=== PATIENT | male | born 1980 | race Two or more races ===

== ENCOUNTER 2020-04-21 19:17 | Inpatient (IN) | payer MEDICAID, OTHER ==
[~2020-04-21] VITALS: Ht 180.3 cm; Wt 80.3 kg
[2020-04-21] MEDS ORDERED: SERT100T12 PO (20:20)
[2020-04-21] MEDS ORDERED: BENZ1TAB10 PO (20:20)
[2020-04-21] MEDS ORDERED: TRAZ-257 PO (20:20)
[2020-04-21] MEDS ORDERED: QUET25TA PO (20:20)
[2020-04-21] MEDS ORDERED: QUET200T PO (20:20)
[2020-04-21] MEDS ORDERED: CLON-592 PO (20:20)
[2020-04-21 20:35] LABS: BASOPHILS % (AUTO) 0.4 % (0.0-2.0); EOSINOPHILS % (AUTO) 0.2 % (1.0-6.0); HEMATOCRIT 43.1 % (41-53); HEMOGLOBIN 14.5 g/dL (13.5-17.5); LYMPHOCYTES # (AUTO) 1.2 K/uL (1.0-4.8); LYMPHOCYTES % (AUTO) 9.5 % (22.0-44.0); MEAN CORPUSCULAR HEMOGLOBIN 29.9 pg (26.0-34.0); MEAN CORPUSCULAR HGB CONC 33.5 G/dL (31.0-37.0); MEAN CORPUSCULAR VOLUME 89 fL (80-100); MONOCYTES # (AUTO) 0.9 K/uL (0.1-1.0); NEUTROPHILS # (AUTO) 10.5 K/uL (1.8-7.7); NEUTROPHILS % (AUTO) 82.9 % (40.0-70.0); PLATELET COUNT (AUTO) 204 K/uL (150-450); RED BLOOD CELL COUNT(AUTO) 4.83 MIL/uL (4.50-5.90); RED CELL DISTRIBUTION WIDTH 13.7 % (11.5-14.5)
[2020-04-21 20:48] LABS: ANION GAP 15 mmol/L (8-16); CALCIUM, TOTAL 9.4 mg/dL (8.8-10.5); CARBON DIOXIDE 22 mmol/L (22-29); CHLORIDE 103 mmol/L (98-107); CREATININE 1.42 mg/dL (0.60-1.30); GLOMERULAR FILTR. RATE CALC 56 mL/min (>60); GLUCOSE,RANDOM 104 mg/dL (70-110); POTASSIUM 3.4 mmol/L (3.5-5.1); SODIUM SERUM 140 mmol/L (136-145); UREA NITROGEN, BLOOD 22 mg/dL (7-18)
[2020-04-21 20:56] LABS: ALANINE AMINOTRANSFERASE 26 U/L (12-78); ALBUMIN 4.5 g/dL (3.4-5.0); ALKALINE PHOSPHATASE 65 U/L (46-116); ASPARTATE AMINOTRANSFERASE 20 U/L (15-37); BILIRUBIN,TOTAL 0.4 mg/dL (0.1-1.0); TOTAL PROTEIN, SERUM 7.4 g/dL (6.4-8.2)
[2020-04-21] MEDS ORDERED: LORazepam 2 MG/ML VIAL IM ONE (21:30)
[2020-04-21] MEDS ORDERED: HALOPERIDOL LACTATE 5 MG/ML VIAL IM ONE (21:30)
[2020-04-21] MEDS ORDERED: DiphenhydrAMINE HCL 50 MG/ML VIAL IM ONE (21:30)
[2020-04-21] MEDS ORDERED: ZOLPIDEM TARTRATE 10 MG TABLET PO PRN (22:00)
[2020-04-21] MEDS ORDERED: HALOPERIDOL 5 MG TABLET PO PRN (22:00)
[2020-04-22 00:31] VITALS: BP 108/78
[2020-04-22] MEDS ORDERED: MAG HYDROX/AL HYDROX/SIMETH ES 30 ML SUSPENSION UDCUP PO PRN (04:00)
[2020-04-22] MEDS ORDERED: ONDANSETRON HCL 4 MG TABLET PO PRN (04:00)
[2020-04-22] MEDS ORDERED: ALBUTEROL SULFATE HFA 90 MCG/PUFF 8 GM INHALER IH PRN (04:00)
[2020-04-22] MEDS ORDERED: GuaiFENesin/D-METHORPHAN [SUGAR-FREE] 200-20MG/10 ML SYRUP UDCUP PO PRN (04:00)
[2020-04-22] MEDS ORDERED: IBUPROFEN 400 MG TABLET PO PRN (04:00)
[2020-04-22] MEDS ORDERED: ACETAMINOPHEN 325 MG TABLET PO PRN (04:00)
[2020-04-22] MEDS ORDERED: NICOTINE 14 MG/24 HOUR PATCH TD PRN (04:00)
[2020-04-22] MEDS ORDERED: PETROLATUM,WHITE 28 GM JELLY TP PRN (04:00)
[2020-04-22] MEDS ORDERED: LOPERAMIDE HCL 2 MG CAPSULE PO PRN (04:00)
[2020-04-22] MEDS ORDERED: MAGNESIUM HYDROXIDE SUSPENSION 30 ML UDCUP PO PRN (04:00)
[2020-04-22] MEDS ORDERED: CloNIDine HCL 0.1 MG TABLET PO PRN (04:00)
[2020-04-22] MEDS ORDERED: DOCUSATE SODIUM 100 MG CAPSULE PO PRN (04:00)
[2020-04-22 08:10] LABS: CHOL/HDL RATIO 6.1 (4.2-7.3); POTASSIUM 4.1 mmol/L (3.5-5.1)
[2020-04-22 08:15] VITALS: BP 122/76
[2020-04-22] MEDS: BENZTROPINE MESYLATE 1 MG TABLET PO SCH ×2 (13:08→16:48)
[2020-04-22 16:12] VITALS: BP 121/80
[2020-04-22] MEDS: LORazepam 2 MG TABLET PO PRN (16:48)
[2020-04-22] MEDS: OLANZapine 5 MG TABLET PO SCH (16:48)
[2020-04-22] MEDS: QUEtiapine FUMARATE 200 MG TABLET PO SCH (20:44)
[2020-04-23 01:56] VITALS: BP 115/78
[2020-04-23 08:04] VITALS: BP 129/74
[2020-04-23] MEDS: SERTRALINE HCL 100 MG TABLET PO SCH (08:39)
[2020-04-23] MEDS: BENZTROPINE MESYLATE 1 MG TABLET PO SCH ×3 (08:39→16:43)
[2020-04-23] MEDS: OLANZapine 5 MG TABLET PO SCH ×2 (08:39→16:42)
[2020-04-23 17:29] VITALS: BP 125/84
[2020-04-23] MEDS: QUEtiapine FUMARATE 200 MG TABLET PO SCH (20:30)
[2020-04-24 04:32] VITALS: BP 124/65
[2020-04-24] MEDS: OLANZapine 5 MG TABLET PO SCH ×2 (09:43→16:49)
[2020-04-24] MEDS: BENZTROPINE MESYLATE 1 MG TABLET PO SCH ×3 (09:43→16:49)
[2020-04-24] MEDS: SERTRALINE HCL 100 MG TABLET PO SCH (09:43)
[2020-04-24 09:47] VITALS: BP 130/77
[2020-04-24 16:16] VITALS: BP 112/75
[2020-04-24] MEDS ORDERED: DiphenhydrAMINE HCL 50 MG/ML VIAL ONE (17:09)
[2020-04-24] MEDS ORDERED: HALOPERIDOL LACTATE 5 MG/ML VIAL ONE (17:09)
[2020-04-24] MEDS ORDERED: LORazepam 2 MG/ML VIAL IM ONE (17:15)
[2020-04-24] MEDS ORDERED: HALOPERIDOL LACTATE 5 MG/ML VIAL IM ONE (17:15)
[2020-04-24] MEDS ORDERED: DiphenhydrAMINE HCL 50 MG/ML VIAL IM ONE (17:15)
[2020-04-24] MEDS: QUEtiapine FUMARATE 200 MG TABLET PO SCH (20:35)
[2020-04-25 05:06] VITALS: BP 110/68
[2020-04-25 08:26] VITALS: BP 125/86
[2020-04-25] MEDS: BENZTROPINE MESYLATE 1 MG TABLET PO SCH ×3 (09:17→16:27)
[2020-04-25] MEDS: OLANZapine 5 MG TABLET PO SCH ×2 (09:17→16:27)
[2020-04-25] MEDS: SERTRALINE HCL 100 MG TABLET PO SCH (09:17)
[2020-04-25 16:32] VITALS: BP 127/74
[2020-04-25] MEDS: QUEtiapine FUMARATE 200 MG TABLET PO SCH (20:18)
[2020-04-26 05:00] VITALS: BP 120/62
[2020-04-26] MEDS: BENZTROPINE MESYLATE 1 MG TABLET PO SCH ×3 (08:39→16:55)
[2020-04-26] MEDS: SERTRALINE HCL 100 MG TABLET PO SCH (08:39)
[2020-04-26] MEDS: OLANZapine 5 MG TABLET PO SCH ×2 (08:39→16:55)
[2020-04-26 09:31] VITALS: BP 109/65
[2020-04-26 16:06] VITALS: BP 140/70
[2020-04-26] MEDS ORDERED: LORazepam 2 MG/ML VIAL IM ONE (17:30)
[2020-04-26] MEDS ORDERED: HALOPERIDOL LACTATE 5 MG/ML VIAL IM ONE (17:30)
[2020-04-26] MEDS ORDERED: DiphenhydrAMINE HCL 50 MG/ML VIAL IM ONE (17:30)
[2020-04-26] MEDS: QUEtiapine FUMARATE 200 MG TABLET PO SCH (20:47)
[2020-04-27 02:01] VITALS: BP 108/65
[2020-04-27 07:56] LABS: BASOPHILS % (AUTO) 0.8 % (0.0-2.0); EOSINOPHILS % (AUTO) 4.3 % (1.0-6.0); HEMATOCRIT 43.1 % (41-53); HEMOGLOBIN 14.2 g/dL (13.5-17.5); LYMPHOCYTES # (AUTO) 2.2 K/uL (1.0-4.8); LYMPHOCYTES % (AUTO) 32.3 % (22.0-44.0); MEAN CORPUSCULAR HGB CONC 33.1 G/dL (31.0-37.0); MEAN CORPUSCULAR VOLUME 91 fL (80-100); MONOCYTES # (AUTO) 0.6 K/uL (0.1-1.0); NEUTROPHILS # (AUTO) 3.8 K/uL (1.8-7.7); NEUTROPHILS % (AUTO) 54.6 % (40.0-70.0); PLATELET COUNT (AUTO) 200 K/uL (150-450); RED BLOOD CELL COUNT(AUTO) 4.75 MIL/uL (4.50-5.90); RED CELL DISTRIBUTION WIDTH 13.6 % (11.5-14.5)
[2020-04-27] MEDS: OLANZapine 5 MG TABLET PO SCH ×2 (08:20→16:59)
[2020-04-27] MEDS: LORazepam 2 MG TABLET PO PRN (08:20)
[2020-04-27] MEDS: OMEGA-3/DHA/EPA/FISH OIL 1,000 MG CAPSULE PO SCH (08:20)
[2020-04-27] MEDS: BENZTROPINE MESYLATE 1 MG TABLET PO SCH ×3 (08:20→16:59)
[2020-04-27] MEDS: SERTRALINE HCL 100 MG TABLET PO SCH (08:20)
[2020-04-27 09:19] VITALS: BP 122/80
[2020-04-27 16:22] VITALS: BP 122/77
[2020-04-27] MEDS: QUEtiapine FUMARATE 200 MG TABLET PO SCH (20:32)
[2020-04-28 05:27] VITALS: BP 125/78
[2020-04-28 08:11] VITALS: BP 118/69
[2020-04-28] MEDS: LORazepam 2 MG TABLET PO PRN (08:44)
[2020-04-28] MEDS: OLANZapine 5 MG TABLET PO SCH ×2 (08:44→16:36)
[2020-04-28] MEDS: SERTRALINE HCL 100 MG TABLET PO SCH (08:44)
[2020-04-28] MEDS: OMEGA-3/DHA/EPA/FISH OIL 1,000 MG CAPSULE PO SCH (08:44)
[2020-04-28] MEDS: BENZTROPINE MESYLATE 1 MG TABLET PO SCH ×3 (08:44→16:36)
[2020-04-28 16:14] VITALS: BP 115/76
[2020-04-28] MEDS: QUEtiapine FUMARATE 200 MG TABLET PO SCH (20:16)
[2020-04-29 04:07] VITALS: BP 121/72
[2020-04-29 09:13] VITALS: BP 110/78
[2020-04-29] MEDS: SERTRALINE HCL 100 MG TABLET PO SCH (09:26)
[2020-04-29] MEDS: OMEGA-3/DHA/EPA/FISH OIL 1,000 MG CAPSULE PO SCH (09:26)
[2020-04-29] MEDS: BENZTROPINE MESYLATE 1 MG TABLET PO SCH ×3 (09:26→16:46)
[2020-04-29] MEDS: OLANZapine 5 MG TABLET PO SCH ×2 (09:26→16:46)
[2020-04-29 16:07] VITALS: BP 120/73
[2020-04-29] MEDS: QUEtiapine FUMARATE 200 MG TABLET PO SCH (20:32)
[2020-04-30 04:15] VITALS: BP 125/75
[2020-04-30 08:28] VITALS: BP 119/81
[2020-04-30] MEDS: OLANZapine 5 MG TABLET PO SCH ×2 (08:31→16:11)
[2020-04-30] MEDS: BENZTROPINE MESYLATE 1 MG TABLET PO SCH ×3 (08:31→16:11)
[2020-04-30] MEDS: OMEGA-3/DHA/EPA/FISH OIL 1,000 MG CAPSULE PO SCH (08:31)
[2020-04-30] MEDS: SERTRALINE HCL 100 MG TABLET PO SCH (08:31)
[2020-04-30 17:22] VITALS: BP 131/79
[2020-04-30] MEDS: QUEtiapine FUMARATE 200 MG TABLET PO SCH (20:17)
[2020-05-01 01:12] VITALS: BP 139/76
[2020-05-01 08:19] VITALS: BP 132/84
[2020-05-01] MEDS: BENZTROPINE MESYLATE 1 MG TABLET PO SCH ×3 (08:40→17:31)
[2020-05-01] MEDS: OLANZapine 5 MG TABLET PO SCH ×2 (08:40→17:31)
[2020-05-01] MEDS: SERTRALINE HCL 100 MG TABLET PO SCH (08:40)
[2020-05-01] MEDS: OMEGA-3/DHA/EPA/FISH OIL 1,000 MG CAPSULE PO SCH (08:40)
[2020-05-01 16:42] VITALS: BP 130/81
[2020-05-01] MEDS: QUEtiapine FUMARATE 200 MG TABLET PO SCH (20:22)
[2020-05-02 06:33] VITALS: BP 128/80
[2020-05-02 08:23] VITALS: BP 130/84
[2020-05-02] MEDS: OLANZapine 5 MG TABLET PO SCH ×2 (08:34→16:07)
[2020-05-02] MEDS: SERTRALINE HCL 100 MG TABLET PO SCH (08:34)
[2020-05-02] MEDS: OMEGA-3/DHA/EPA/FISH OIL 1,000 MG CAPSULE PO SCH (08:34)
[2020-05-02] MEDS: BENZTROPINE MESYLATE 1 MG TABLET PO SCH ×3 (08:34→16:06)
[2020-05-02 17:27] VITALS: BP 139/85
[2020-05-02] MEDS: QUEtiapine FUMARATE 200 MG TABLET PO SCH (21:09)
[2020-05-03 01:32] VITALS: BP 122/76
[2020-05-03 08:00] VITALS: BP 122/80
[2020-05-03] MEDS: BENZTROPINE MESYLATE 1 MG TABLET PO SCH ×3 (12:00→16:06)
[2020-05-03] MEDS: OMEGA-3/DHA/EPA/FISH OIL 1,000 MG CAPSULE PO SCH (12:00)
[2020-05-03] MEDS: SERTRALINE HCL 100 MG TABLET PO SCH (12:00)
[2020-05-03] MEDS: OLANZapine 5 MG TABLET PO SCH ×2 (12:00→16:06)
[2020-05-03 16:00] VITALS: BP 122/88
[2020-05-03] MEDS: LORazepam 2 MG TABLET PO PRN (16:06)
[2020-05-03] MEDS: QUEtiapine FUMARATE 200 MG TABLET PO SCH (20:35)
[2020-05-04 00:35] VITALS: BP 129/74
[2020-05-04] MEDS: BENZTROPINE MESYLATE 1 MG TABLET PO SCH ×3 (08:37→16:09)
[2020-05-04] MEDS: OLANZapine 5 MG TABLET PO SCH ×2 (08:37→16:09)
[2020-05-04] MEDS: OMEGA-3/DHA/EPA/FISH OIL 1,000 MG CAPSULE PO SCH (08:37)
[2020-05-04] MEDS: LORazepam 2 MG TABLET PO PRN (08:37)
[2020-05-04] MEDS: SERTRALINE HCL 100 MG TABLET PO SCH (08:37)
[2020-05-04 09:39] VITALS: BP 106/60
[2020-05-04 16:41] VITALS: BP 120/74
[2020-05-04] MEDS: QUEtiapine FUMARATE 200 MG TABLET PO SCH (20:10)
[2020-05-05] VITALS: BP 112/73
[2020-05-05 09:04] VITALS: BP 112/70
[2020-05-05] MEDS: OMEGA-3/DHA/EPA/FISH OIL 1,000 MG CAPSULE PO SCH (09:24)
[2020-05-05] MEDS: BENZTROPINE MESYLATE 1 MG TABLET PO SCH ×3 (09:24→16:00)
[2020-05-05] MEDS: SERTRALINE HCL 100 MG TABLET PO SCH (09:24)
[2020-05-05] MEDS: OLANZapine 5 MG TABLET PO SCH ×2 (09:24→16:00)
[2020-05-05 17:50] VITALS: BP 128/81
[2020-05-05] MEDS: QUEtiapine FUMARATE 200 MG TABLET PO SCH (20:14)
[2020-05-06] VITALS: BP 122/71
[2020-05-06 08:39] VITALS: BP 130/75
[2020-05-06] MEDS: OLANZapine 5 MG TABLET PO SCH ×2 (09:29→16:50)
[2020-05-06] MEDS: BENZTROPINE MESYLATE 1 MG TABLET PO SCH ×3 (09:29→16:50)
[2020-05-06] MEDS: OMEGA-3/DHA/EPA/FISH OIL 1,000 MG CAPSULE PO SCH (09:29)
[2020-05-06] MEDS: SERTRALINE HCL 100 MG TABLET PO SCH (09:29)
[2020-05-06 16:06] VITALS: BP 131/83
[2020-05-06] MEDS: QUEtiapine FUMARATE 200 MG TABLET PO SCH (20:56)
[2020-05-07 06:15] VITALS: BP 130/80
[2020-05-07 08:15] VITALS: BP 125/54
[2020-05-07] MEDS: OMEGA-3/DHA/EPA/FISH OIL 1,000 MG CAPSULE PO SCH (09:37)
[2020-05-07] MEDS: SERTRALINE HCL 100 MG TABLET PO SCH (09:37)
[2020-05-07] MEDS: OLANZapine 5 MG TABLET PO SCH ×2 (09:37→16:38)
[2020-05-07] MEDS: BENZTROPINE MESYLATE 1 MG TABLET PO SCH ×3 (09:37→16:38)
[2020-05-07 16:06] VITALS: BP 129/75
[2020-05-07] MEDS: QUEtiapine FUMARATE 200 MG TABLET PO SCH (20:14)
[2020-05-08 04:25] VITALS: BP 131/74
[2020-05-08] MEDS: SERTRALINE HCL 100 MG TABLET PO SCH (08:38)
[2020-05-08] MEDS: OMEGA-3/DHA/EPA/FISH OIL 1,000 MG CAPSULE PO SCH (08:38)
[2020-05-08] MEDS: OLANZapine 5 MG TABLET PO SCH ×2 (08:38→16:19)
[2020-05-08] MEDS: BENZTROPINE MESYLATE 1 MG TABLET PO SCH ×3 (08:38→16:19)
[2020-05-08 09:25] VITALS: BP 123/64
[2020-05-08 16:04] VITALS: BP 131/86
[2020-05-08] MEDS: QUEtiapine FUMARATE 200 MG TABLET PO SCH (20:15)
[2020-05-09 01:43] VITALS: BP 127/75
[2020-05-09] MEDS: OLANZapine 5 MG TABLET PO SCH ×2 (08:22→16:22)
[2020-05-09] MEDS: OMEGA-3/DHA/EPA/FISH OIL 1,000 MG CAPSULE PO SCH (08:22)
[2020-05-09] MEDS: BENZTROPINE MESYLATE 1 MG TABLET PO SCH ×3 (08:22→16:22)
[2020-05-09] MEDS: SERTRALINE HCL 100 MG TABLET PO SCH (08:22)
[2020-05-09 08:39] VITALS: BP 120/77
[2020-05-09 16:06] VITALS: BP 115/73
[2020-05-09] MEDS: QUEtiapine FUMARATE 200 MG TABLET PO SCH (21:26)
[2020-05-10 00:57] VITALS: BP 120/62
[2020-05-10 08:09] VITALS: BP 107/70
[2020-05-10] MEDS: SERTRALINE HCL 100 MG TABLET PO SCH (08:21)
[2020-05-10] MEDS: OMEGA-3/DHA/EPA/FISH OIL 1,000 MG CAPSULE PO SCH (08:21)
[2020-05-10] MEDS: OLANZapine 5 MG TABLET PO SCH ×2 (08:21→16:38)
[2020-05-10] MEDS: BENZTROPINE MESYLATE 1 MG TABLET PO SCH ×3 (08:21→16:38)
[2020-05-10 16:16] VITALS: BP 133/81
[2020-05-10] MEDS: QUEtiapine FUMARATE 200 MG TABLET PO SCH (20:24)
[2020-05-11 00:10] VITALS: BP 118/71
[2020-05-11 08:09] VITALS: BP 112/74
[2020-05-11] MEDS: OLANZapine 5 MG TABLET PO SCH ×2 (08:09→16:36)
[2020-05-11] MEDS: BENZTROPINE MESYLATE 1 MG TABLET PO SCH ×3 (08:09→16:36)
[2020-05-11] MEDS: SERTRALINE HCL 100 MG TABLET PO SCH (08:09)
[2020-05-11] MEDS: OMEGA-3/DHA/EPA/FISH OIL 1,000 MG CAPSULE PO SCH (08:09)
[2020-05-11 16:27] VITALS: BP 108/86
[2020-05-11] MEDS: QUEtiapine FUMARATE 200 MG TABLET PO SCH (20:13)
[2020-05-12 06:36] VITALS: BP 110/77
[2020-05-12] MEDS: OMEGA-3/DHA/EPA/FISH OIL 1,000 MG CAPSULE PO SCH (08:28)
[2020-05-12] MEDS: OLANZapine 5 MG TABLET PO SCH ×2 (08:28→16:18)
[2020-05-12] MEDS: BENZTROPINE MESYLATE 1 MG TABLET PO SCH ×3 (08:28→16:18)
[2020-05-12] MEDS: SERTRALINE HCL 100 MG TABLET PO SCH (08:28)
[2020-05-12 08:36] VITALS: BP 114/70
[2020-05-12 16:14] VITALS: BP 134/77
[2020-05-12] MEDS: QUEtiapine FUMARATE 200 MG TABLET PO SCH (20:23)
[2020-05-13 05:23] VITALS: BP 106/68
[2020-05-13 08:25] VITALS: BP 110/74
[2020-05-13] MEDS: OLANZapine 5 MG TABLET PO SCH ×2 (08:57→16:38)
[2020-05-13] MEDS: BENZTROPINE MESYLATE 1 MG TABLET PO SCH ×3 (08:57→16:38)
[2020-05-13] MEDS: OMEGA-3/DHA/EPA/FISH OIL 1,000 MG CAPSULE PO SCH (08:57)
[2020-05-13] MEDS: SERTRALINE HCL 100 MG TABLET PO SCH (08:57)
[2020-05-13 16:33] VITALS: BP 112/76
[2020-05-13] MEDS: QUEtiapine FUMARATE 200 MG TABLET PO SCH (20:30)
[2020-05-14 06:13] VITALS: BP 128/83
[2020-05-14 08:25] VITALS: BP 11/61
[2020-05-14] MEDS: OLANZapine 5 MG TABLET PO SCH ×2 (09:38→16:48)
[2020-05-14] MEDS: BENZTROPINE MESYLATE 1 MG TABLET PO SCH ×3 (09:38→16:48)
[2020-05-14] MEDS: SERTRALINE HCL 100 MG TABLET PO SCH (09:38)
[2020-05-14 16:06] VITALS: BP 122/66
[2020-05-14] MEDS: QUEtiapine FUMARATE 200 MG TABLET PO SCH (20:25)
[2020-05-15 01:36] VITALS: BP 105/68
[2020-05-15] MEDS: BENZTROPINE MESYLATE 1 MG TABLET PO SCH ×3 (08:25→16:23)
[2020-05-15] MEDS: SERTRALINE HCL 100 MG TABLET PO SCH (08:25)
[2020-05-15] MEDS: OLANZapine 5 MG TABLET PO SCH ×2 (08:25→16:23)
[2020-05-15] MEDS: OMEGA-3/DHA/EPA/FISH OIL 1,000 MG CAPSULE PO SCH (08:26)
[2020-05-15 08:38] VITALS: BP 113/77
[2020-05-15 16:03] VITALS: BP 143/90
[2020-05-15] MEDS: QUEtiapine FUMARATE 200 MG TABLET PO SCH (20:05)
[2020-05-16 01:20] VITALS: BP 122/70
[2020-05-16] MEDS: BENZTROPINE MESYLATE 1 MG TABLET PO SCH ×3 (08:24→16:15)
[2020-05-16] MEDS: OLANZapine 5 MG TABLET PO SCH ×2 (08:24→16:15)
[2020-05-16] MEDS: OMEGA-3/DHA/EPA/FISH OIL 1,000 MG CAPSULE PO SCH (08:24)
[2020-05-16] MEDS: SERTRALINE HCL 100 MG TABLET PO SCH (08:24)
[2020-05-16 08:36] VITALS: BP 127/78
[2020-05-16 16:25] VITALS: BP 119/79
[2020-05-16] MEDS: QUEtiapine FUMARATE 200 MG TABLET PO SCH (20:08)
[2020-05-17 00:17] VITALS: BP 110/71
[2020-05-17] MEDS: OLANZapine 5 MG TABLET PO SCH (08:27)
[2020-05-17] MEDS: BENZTROPINE MESYLATE 1 MG TABLET PO SCH (08:27)
[2020-05-17] MEDS: SERTRALINE HCL 100 MG TABLET PO SCH (08:27)
[2020-05-17] MEDS: OMEGA-3/DHA/EPA/FISH OIL 1,000 MG CAPSULE PO SCH (08:27)
[2020-05-17 10:24] VITALS: BP 110/71
[2020-05-17] MEDS ORDERED: OLAN5TAB2 PO (10:34)
== END 2020-05-17 14:00 | disposition home or self-care (01) | DRG 750 ==
LOC: EMS 19:17 → B3A 21:54 → B2S 04-25 12:01
PROVIDERS: ADMIT Psychiatry & Neurology Psychiatry; ATTEND Psychiatry & Neurology Psychiatry
DX: F20.0 Paranoid schizophrenia (principal); S00.83XA Contusion of other part of head, initial encounter; D72.829 Elevated white blood cell count, unspecified; E78.5 Hyperlipidemia, unspecified; E87.6 Hypokalemia; N17.9 Acute kidney failure, unspecified; Z78.1 Physical restraint status; Z79.899 Other long term (current) drug therapy; W19.XXXA Unspecified fall, initial encounter; Y93.89 Activity, other specified; Y92.89 Other specified places as the place of occurrence of the external cause; Y99.8 Other external cause status
CPT/HCPCS: 84132; 99291; G0480; J1200; J1630; J2060

== ENCOUNTER 2020-05-03 08:18 | Emergency (ER) | payer MEDICAID, OTHER ==
[~2020-05-03] VITALS: Ht 180.3 cm; Wt 81.0 kg
[~2020-05-03 08:18] MED LIST: BENZ1TAB10 PO; CLON-592 PO; QUET200T PO; QUET25TA PO; SERT100T12 PO; TRAZ-257 PO
[2020-05-03 12:25] VITALS: BP 143/91
== END 2020-05-03 13:18 | disposition home or self-care (01) ==
LOC: EMS 08:25
DX: F20.9 Schizophrenia, unspecified (principal); R03.0 Elevated blood-pressure reading, without diagnosis of hypertension; Z20.828 Contact with and (suspected) exposure to other viral communicable diseases
CPT/HCPCS: 87426